=== PATIENT | female | born 2000 | race Caucasian/White ===

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

== ENCOUNTER 2021-10-13 11:06 | Emergency (ER) | payer BC ==
[~2021-10-13] VITALS: Ht 160 cm; Wt 49.9 kg
[~2021-10-13 11:06] MED LIST changes: +LOTRISONE 0.05%15 GM T
== END 2021-10-13 13:09 | disposition home or self-care (01) ==
LOC: ED 11:06
PROVIDERS: Family Medicine
DX: U07.1 COVID-19 (principal); R51.9 Headache, unspecified; Z20.822 Contact with and (suspected) exposure to COVID-19; R50.9 Fever, unspecified; Z88.1 Allergy status to other antibiotic agents

== ENCOUNTER 2023-10-22 18:15 | Emergency (ER) | payer BC ==
[~2023-10-22] VITALS: Ht 160 cm; Wt 52.2 kg
[2023-10-22] MEDS ORDERED: VIBRAMYCIN100 MG PO (18:27)
== END 2023-10-22 18:33 | disposition home or self-care (01) ==
LOC: ED 18:15
DX: S80.861A Insect bite (nonvenomous), right lower leg, initial encounter (principal); Z88.1 Allergy status to other antibiotic agents; Z98.890 Other specified postprocedural states; W57.XXXA Bitten or stung by nonvenomous insect and other nonvenomous arthropods, initial encounter; Y93.89 Activity, other specified; Y92.009 Unspecified place in unspecified non-institutional (private) residence as the place of occurrence of the external cause; Y99.8 Other external cause status